=== PATIENT | female | born 1980 | race Caucasian/White ===

== ENCOUNTER 2020-01-18 19:49 | Emergency (ER) | END 2020-01-18 22:01 | disposition left against medical advice (07) | LOC: ER 19:49 | DX: Z53.21 Procedure and treatment not carried out due to patient leaving prior to being seen by health care provider (principal); F19.10 Other psychoactive substance abuse, uncomplicated ==

== ENCOUNTER 2020-02-07 09:50 | Emergency (ER) | payer SELFPAY ==
--- NOTE | 2020-02-07 10:14 | ER Document Report ---
ED Medical Screen (RME) - General Chief Complaint: Vaginal Bleeding Stated Complaint: VAGINAL BLEEDING Time Seen by Provider: 02/07/20 10:10 Mode of Arrival: Ambulatory Information source: Patient Notes: 39-year-old female presents to ED for complaint of severe vaginal bleeding and pelvic cramping. She states her last menstrual cycle was 13 January. She states this is a early cycle and it is severe bleeding and cramping. She states she is changing a overnight pad every 2-3 hours plus using tampons. She states she does smoke 1/2 pack a day drinks about once a week and does use meth amphe tamines. States her last dose of methamphetamines was about 2 days ago. She does have a past medical history of anemia and migraines. She is alert oriented respirations regular nonlabored speaking in full sentences. She does state that her pain level is about a 3 or 4 at this time. I have greeted and performed a rapid initial assessment of this patient. A comprehensive ED assessment and evaluation of the patient, analysis of test results and completion of medical decision making process will be conducted by an additional ED providers.
[2020-02-07 10:16] VITALS: BP 124/82
--- NOTE | 2020-02-07 11:06 | RADIOLOGY REPORT (SQ) ---
EXAM DESCRIPTION: U/S NON-OB PELVIS TV W/O DOP IMAGES COMPLETED DATE/TIME: 02/07/2020 10:56 am REASON FOR STUDY: Severe heavy bleeding and cramping with menstrual COMPARISON: None. TECHNIQUE: Dynamic and static grayscale images acquired of the pelvis via transvaginal approach and recorded on PACS. Additional selected color Doppler and spectral images recorded. LIMITATIONS: None. FINDINGS: UTERUS: Contour normal. No mass. ENDOMETRIAL STRIPE: No focal or generalized thickening. No masses. CERVIX: A small nabothian cyst is noted. RIGHT OVARY AND DOPPLER: Normal size. No worrisome masses. Normal arterial vascular flow without evid ence for torsion. LEFT OVARY AND DOPPLER: Normal size. No worrisome masses. Normal arterial vascular flow without evide nce for torsion. FREE FLUID: None noted. OTHER: No other significant finding. MEASUREMENTS: UTERUS: 9.2 x 5.5 x 5.4 cm. ENDOMETRIAL STRIPE: 10.7 mm. RIGHT OVARY: 2.6 x 2.1 x 1.5 cm. LEFT OVARY: 2.4 x 2.1 x 1.4 cm. IMPRESSION: NORMAL TRANSVAGINAL PELVIC ULTRASOUND. TECHNICAL DOCUMENTATION: JOB ID: [id number] 2010 [employer]- All Rights Reserved Rev-11/07 Reading location - IP/workstation name: [email or web address]
[2020-02-07 12:28] LABS: ABSOLUTE EOSINOPHILS # (AUTO) 0.1 10^3/uL (0.0-0.6); ABSOLUTE LYMPHOCYTES (AUTO) 1.4 10^3/uL (0.5-4.7); ABSOLUTE MONOCYTES (AUTO) 0.3 10^3/uL (0.1-1.4); ABSOLUTE NEUT (AUTO) 2.6 10^3/uL (1.7-8.2); BASOPHILS % (AUTO) 0.6 % (0-2); EOSINOPHILS % (AUTO) 2.7 % (0-6); HEMATOCRIT 29.7 % (36.0-47.0); HEMOGLOBIN 9.3 g/dL (12.0-15.5); LYMPHOCYTES % (AUTO) 30.6 % (13-45); MEAN CORPUSCULAR HEMOGLOBIN 20.7 pg (27.0-33.4); MEAN CORPUSCULAR HGB CONC 31.3 g/dL (32.0-36.0); MEAN CORPUSCULAR VOLUME 66 fl (80-97); MONOCYTES % (AUTO) 7.7 % (3-13); PLATELET COUNT 184 10^3/uL (150-450); RED CELL DISTRIBUTION WIDTH 19.5 % (11.5-14.0); SEGMENTED NEUTROPHILS % (AUTO) 58.4 % (42-78); TOTAL CELLS COUNTED % (AUTO) 100 %; WHITE BLOOD COUNT 4.4 10^3/uL (4.0-10.5)
[2020-02-07 12:44] LABS: ALBUMIN 3.8 g/dL (3.5-5.0); ALKALINE PHOSPHATASE 58 U/L (38-126); ANION GAP 7 (5-19); ASPARTATE AMINO TRANSFERASE 25 U/L (14-36); BILIRUBIN,TOTAL 0.5 mg/dL (0.2-1.3); BLOOD UREA NITROGEN 9 mg/dL (7-20); CALCIUM 8.7 mg/dL (8.4-10.2); CARBON DIOXIDE 26 mmol/L (22-30); CHLORIDE 108 mmol/L (98-107); GLUCOSE 91 mg/dL (75-110); POTASSIUM 3.3 mmol/L (3.6-5.0); TOTAL PROTEIN 6.8 g/dL (6.3-8.2)
[2020-02-07 18:22] LABS: RBCS (WET MOUNT) 4+ RBCS SEEN; T.VAGINALIS (WET MOUNT) NO TRICHOMONAS SEEN; WBCS (WET MOUNT) FEW WBCS SEEN; YEAST (WET MOUNT) NO YEAST SEEN
[2020-02-07 18:34] LABS: APPEARANCE,URINE CLOUDY; BILIRUBIN,URINE NEGATIVE (NEGATIVE); COLOR,URINE YELLOW; GLUCOSE, URINE NEGATIVE (NEGATIVE); KETONES,URINE NEGATIVE (NEGATIVE); LEUKOCYTE ESTERASE,URINE NEGATIVE (NEGATIVE); NITRITE,URINE NEGATIVE (NEGATIVE); PROTEIN,URINE 30 mg/dL (NEGATIVE); URINE SPECIFIC GRAVITY 1.023
[2020-02-07 18:48] LABS: URINE BARBITURATES SCREEN NEGATIVE; URINE BENZODIAZEPINES SCREEN NEGATIVE; URINE COCAINE SCREEN NEGATIVE; URINE MARIJUANA (THC) SCREEN NEGATIVE; URINE METHADONE SCREEN NEGATIVE; URINE PHENCYCLIDINE SCREEN NEGATIVE
--- NOTE | 2020-02-07 18:55 | ER Document Report ---
ED GI/ - General Chief Complaint: Vaginal Bleeding Stated Complaint: VAGINAL BLEEDING Time Seen by Provider: 02/07/20 10:10 Mode of Arrival: Ambulatory Information source: Patient Notes: 39-year-old woman presenting to the emergency department with a complaint of abnormal vaginal bleeding. She states that for the past 2 months she has had heavier than normal menstrual bleeding with some associated cramping. She has an IUD she has had for greater than 10 years. She denies fever, abnormal discharge, or associated nausea and vomiting. History of history of substance abuse, methamphetamine. - Related Data Allergies/Adverse Reactions: No Known Allergies Allergy (Unverified 02/07/20 10:16) Home Medications: denies Past Medical History - General Information source: Patient - Social History Smoking Status: Current Every Day Smoker Chew tobacco use (# tins/day): No Frequency of alcohol use: Social Drug Abuse: Methamphetamine Family History: Reviewed & Not Pertinent Patient has homicidal ideation: No Review of Systems - Review of Systems Notes: Constitutional: Negative for fever. HENT: Negative for sore throat. Eyes: Negative for visual changes. Cardiovascular: Negative for chest pain. Respiratory: Negative for shortness of breath. Gastrointestinal: Negative for abdominal pain, vomiting or diarrhea. Genitourinary: + Vaginal bleeding, cramping Musculoskeletal: Negative for back pain. Skin: Negative for rash. Neurological: Negative for headaches, weakness or numbness. 10 point ROS negative except as marked above and in HPI. Physical Exam - Vital signs Vitals: Temp Pulse Resp BP Pulse Ox 97.5 F 72 18 124/82 100 02/07/20 10:06 02/07/20 10:06 02/07/20 10:06 02/07/20 10:06 02/07/20 10:06 - Notes Notes: PHYSICAL EXAMINATION: Physical Exam: General: Well-nourished well-developed 89-year-old woman in no acute distress HEENT: NC/AT, pupils equal round and reactive to light, MM moist,nares clear, oropharynx clear, airway patent Neck: supple, no adenopathy, no masses. Good range of motion Lungs: clear, no wheezing, no rales no rhonchi CVS: Regular rate and rhythm no murmur gallop or rub Abdomen: Soft, active, nontender, no masses, no hepatosplenomegaly Pelvic exam: Normal external vaginal anatomy, scant dark blood in the posterior vaginal vault, oozing of a dark blood from the office, cervix is nontender, no masses noted, no adnexal masses. Ext: No edema, clubbing or cyanosis. Neuro: Alert and responsive, moving all 4 extremities on command, cranial nerves intact, no focal findings Skin: Intact no open lesions, no rash PSYCH: Normal mood, normal affect. Course - Vital Signs Vital signs: Temp Pulse Resp BP Pulse Ox 97.5 F 72 18 124/82 100 02/07/20 10:06 02/07/20 10:06 02/07/20 10:06 02/07/20 10:06 02/07/20 10:06 - Laboratory Result Diagrams: 02/07/20 12:00 02/07/20 12:00 Laboratory results interpreted by me: 02/07/20 02/07/20 02/07/20 12:00 12:00 18:20 Hgb 9.3 L Hct 29.7 L MCV 66 L MCH 20.7 L MCHC 31.3 L RDW 19.5 H Potassium 3.3 L Chloride 108 H Urine Protein 30 H Urine Urobilinogen 4.0 H 02/07/20 18:52 I have reviewed laboratory data and used this information for the treatment decisions regarding the patient. Discharge - Discharge Clinical Impression: Heavy menstrual bleeding Qualifiers: Menorrhagia type: with onset of menstrual periods Qualified Code(s): N92.2 - Excessive menstruation at puberty Anemia Qualifiers: Anemia type: other cause Other causes of anemia: other cause, not classified Qualified Code(s): D64.89 - Other specified anemias Condition: Good Disposition: HOME, SELF-CARE Instructions: Vaginal Bleeding ([facility]) Additional Instructions: You were seen in the emergency department for vaginal bleeding. You are found to have a mild anemia and obvious menstrual bleeding on physical exam. Please follow-up with your BILL OF MATERIALS CLERK regarding long-term management of heavy menstrual cycles. You may use ibuprofen or Tylenol for cramping pain, if you have symptoms are worsening or if there are other concerns you may return to the emergency department for further evaluation and treatment HOME CARE INSTRUCTIONS & INFORMATION: Thank you for choosing us for your medical needs. We hope you're satisfied with the care you received. After you leave, you must properly care for your problem and, at the same time, observe its progress. Any condition can change. Some illnesses can change rapidly over hours or days. If your condition worsens, return to the Emergency Department or see your physician promptly. ABOUT YOUR X-RAYS AND EKG'S: If you had an EKG or X-rays taken, they have been read by the Emergency Physician. The X-rays and EKG's will also be read by a Radiologist or Family Intervention Specialist within 24 hours. If discrepancies are noted, you will be notified by telephone. Please be certain the ED has a correct telephone number & address where you can be reached. Also, realize that some fractures or abnormalities do not show up on initial X-rays. If your symptoms continue, see your physician. ABOUT YOUR LABORATORY TEST: If you had laboratory tests, the results have been reviewed by the Emergency Physician. Some test results (for example cultures) may not be available for several days. You will be contacted if any test result shows you need additional treatment. Please be certain the ED has a correct telephone number and address where you can be reached. ABOUT YOUR MEDICATIONS: You will receive instructions on how to take your medicine on the prescription label you receive. Additional information may be provided by the Pharmacy. If you have questions afterwards, call the ED for clarification or further instructions. Some prescribed medications may cause drowsiness. Do not perform tasks such as driving a car or operating machinery without consulting your Pharmacist. If you feel you need a refill of pain medication, your condition will need re-evaluation. Please do not call for a refill of any medication. ABOUT YOUR SIGNATURE: Signature of this document acknowledges to followin. Understanding that you received emergency treatment and that you may be released before al medical problems are known or treated. Please be certain the ED has a correct phone number & address where you can be reached. 2. Acknowledgement that you will arrange for follow-up care as recommended. 3. Authorization for the Emergency Physician to provide information to your follow-up Physician in order to maximize your care. AT ANY TIME, IF YOUR SYMPTOMS CHANGE SIGNIFICANTLY OR WORSEN OR YOU DEVELOP NEW SYMPTOMS, RETURN TO THE EMERGENCY DEPARTMENT IMMEDIATELY FOR RE-EVALUATION. OUR GOAL IS TO PROVIDE EXCELLENT MEDICAL CARE! WE HOPE THAT WE HAVE MET YOUR EXPECTATIONS DURING YOUR EMERGENCY DEPARTMENT VISIT AND THAT YOU FEEL YOU HAVE RECEIVED EXCELLENT CARE!
[2020-02-07 19:42] LABS: CHLAM PCR NOT DETECTED (NOT DETECT)
== END 2020-02-07 19:23 | disposition home or self-care (01) ==
LOC: ER 09:50
DX: N92.0 Excessive and frequent menstruation with regular cycle (principal); D64.9 Anemia, unspecified; F17.200 Nicotine dependence, unspecified, uncomplicated; F15.10 Other stimulant abuse, uncomplicated; Z97.5 Presence of (intrauterine) contraceptive device
CPT/HCPCS: 36415; 76830; 80053; 80307; 81001; 84703; 85025; 86850; 86900; 86901; 87210; 87491; 87591; 99284